=== PATIENT | male | born 1940 | race Caucasian/White ===

== ENCOUNTER 2017-03-22 09:47 | Emergency (ER) | payer MEDICARE, BC ==
[~2017-03-22] VITALS: Ht 182.9 cm; Wt 105.0 kg
[~2017-03-22 09:47] MED LIST: AMLO5TAB4 PO; ASPI-1159 PO; ATEN-42 PO; AZEL30SP2 BOTHNSTRLS; CHOL100046 PO; CO-ENZYME Q10; GLUCOSAMINE/CHON; IRBE150T51 PO; MECL-109 PO; MONT10TA21 PO; MSM; NIAC1000 PO; NITR0.4T SL; OMEP40CA34 PO; PSYLLIUM; ROSU10TA PO; SOTA80TA PO; SULI200T4 PO; TAMS0.4C31 PO; WARF7.5T22 PO; ZOLP10TA6 PO; [UNRECOGNIZED DRUG - OTHER]; [UNRECOGNIZED DRUG - OTHER]; [UNRECOGNIZED DRUG - OTHER]; [UNRECOGNIZED DRUG - OTHER]
[2017-03-22 14:03] VITALS: BP 110/62
== END 2017-03-22 14:04 | disposition home or self-care (01) ==
LOC: ER 09:47
DX: I82.532 Chronic embolism and thrombosis of left popliteal vein (principal); R60.9 Edema, unspecified; I10 Essential (primary) hypertension; E78.00 Pure hypercholesterolemia, unspecified; I48.91 Unspecified atrial fibrillation; Z95.0 Presence of cardiac pacemaker; Z79.82 Long term (current) use of aspirin; Z79.01 Long term (current) use of anticoagulants
CPT/HCPCS: 93005; 93970; 99284

== ENCOUNTER 2018-12-17 13:48 | Inpatient (IN) | payer MEDICARE, BC ==
[~2018-12-17] VITALS: Ht 182.9 cm; Wt 83.6 kg
[2018-12-17 15:15] LABS: BASOPHILS % 0.4 % (0.0-2.0); EOSINOPHILS % 0.4 % (0.0-5.0); HEMATOCRIT. 37.2 % (42.0-52.0); HEMOGLOBIN. 12.9 g/dL (14.0-18.0); LYMPHOCYTES % 8.2 % (20.0-50.0); MEAN CORPUSCULAR HEMOGLOBIN 31.3 pg (28.0-32.0); MEAN CORPUSCULAR VOLUME 89.9 fL (80.0-94.0); MEAN PLATELET VOLUME 7.2 fl (7.4-10.4); MONOCYTES % 9.7 % (2.0-8.0); NEUTROPHILS % 81.3 % (40.0-76.0); PLATELET 138 x1000/uL (130-400); RED BLOOD CELL COUNT 4.13 mill/uL (4.7-6.1); RED CELL DISTRIBUTION WIDTH 13.4 % (11.6-14.6)
[2018-12-17 15:19] LABS: CHLORIDE 111 mEq/L (98-107)
[2018-12-17] MEDS ORDERED: ASPIRIN 325MG EC TABLET PO ONE (15:30)
[2018-12-17] MEDS ORDERED: DONEPEZIL HCL 10MG TABLET PO SCH (16:15)
[2018-12-17] MEDS ORDERED: ASPIRIN 325MG EC TABLET PO SCH (16:15)
[2018-12-17] MEDS ORDERED: NON FORMULARY PATIENT HOME MED XX SCH (16:15)
[2018-12-17] MEDS ORDERED: ATENOLOL 25MG TABLET PO SCH (16:15)
[2018-12-17] MEDS ORDERED: CLONIDINE 0.1MG TABLET PO PRN (16:30)
[2018-12-17] MEDS ORDERED: MONTELUKAST SODIUM 10MG TABLET PO SCH (17:00)
[2018-12-17] MEDS ORDERED: ONDANSETRON HCL 4MG/2ML INJ IV PRN (17:45)
[2018-12-17] MEDS ORDERED: GUAIFENESIN 200MG/10ML SUGAR FREE UDC PO PRN (17:45)
[2018-12-17] MEDS ORDERED: DOCUSATE SODIUM 100MG CAPSULE PO PRN (17:45)
[2018-12-17] MEDS ORDERED: MORPHINE SULFATE 2 MG/ML CPJ (NOT FOR IM USE) IV PRN (17:59)
[2018-12-17 18:23] LABS: PROTHROMBIN TIME 43.2 sec (9.6-11.0)
[2018-12-17 18:30] LABS: INR 4.5
[2018-12-17] MEDS: ACETAMINOPHEN 325MG TABLET PO PRN (19:50)
[2018-12-17 22:00] VITALS: BP 112/52
[2018-12-17] MEDS ORDERED: IOHEXOL-350 100 ML BOTTLE ONE (22:22)
[2018-12-17] MEDS: MONTELUKAST SODIUM 10MG TABLET PO SCH (22:50)
[2018-12-17] MEDS: DONEPEZIL HCL 10MG TABLET PO SCH (22:50)
[2018-12-17] MEDS: ATENOLOL 25MG TABLET PO SCH (22:51)
[2018-12-17] MEDS: TRAZODONE HCL 50MG TABLET PO SCH (22:51)
[2018-12-17 23:00] VITALS: BP_SYST 109; BP_SYST 120; BP_DIAS 55; BP_DIAS 63
[2018-12-18] VITALS (12 sets, daily range): BP systolic 95–122; BP diastolic 56–73
[2018-12-18 06:27] LABS: CHLORIDE 111 mEq/L (98-107)
[2018-12-18 06:29] LABS: HEMOGLOBIN. 12.2 g/dL (14.0-18.0); MEAN CORPUSCULAR HEMOGLOBIN 31.1 pg (28.0-32.0); MEAN CORPUSCULAR VOLUME 89.1 fL (80.0-94.0); MEAN PLATELET VOLUME 7.9 fl (7.4-10.4); PLATELET 128 x1000/uL (130-400); RED BLOOD CELL COUNT 3.92 mill/uL (4.7-6.1); RED CELL DISTRIBUTION WIDTH 13.4 % (11.6-14.6)
[2018-12-18 06:30] LABS: D-DIMER < 0.19 mg/L FEU (<0.50); PROTHROMBIN TIME 45.9 sec (9.6-11.0)
[2018-12-18 06:38] LABS: CREATINE KINASE 89 IU/L (39-308)
[2018-12-18 06:43] LABS: CREATINE KINASE MB FRACTION 1.4 ng/mL (0.5-3.6)
[2018-12-18 07:43] LABS: INR 4.8
[2018-12-18] MEDS: ASPIRIN 81MG EC TABLET PO SCH (08:17)
[2018-12-18] MEDS: DONEPEZIL HCL 10MG TABLET PO SCH (08:24)
[2018-12-18] MEDS: ATENOLOL 25MG TABLET PO SCH (08:25)
[2018-12-18] MEDS ORDERED: POTASSIUM CHLORIDE 20MEQ TABLET SR PO NR (10:00)
[2018-12-18] MEDS ORDERED: MAGNESIUM 2 G PREMIX 50 ML IV NR (10:30)
[2018-12-18] MEDS: ACETAMINOPHEN 325MG TABLET PO PRN (10:53)
[2018-12-18] MEDS: POLYETHYLENE GLYCOL 3350 (17GM) 1 DOSE PACK PO SCH (12:35)
[2018-12-18] MEDS ORDERED: PROMETHAZINE/DEXTROMETHORPHAN 6.25-15MG/5ML BOTTLE 120ML PO PRN (15:15)
[2018-12-18] MEDS ORDERED: IPRATROPIUM/ALBUTEROL 0.5-3(2.5)MG/3ML NEB HHN PRN (15:15)
[2018-12-18] MEDS: LORATADINE 10MG TABLET PO SCH (15:22)
[2018-12-18] MEDS ORDERED: REGADENOSON 0.4 MG/5 ML IV NR (15:45)
[2018-12-18 17:40] LABS: PLATELET ESTIMATE NORMAL
[2018-12-18] MEDS: MONTELUKAST SODIUM 10MG TABLET PO SCH (18:00)
[2018-12-18] MEDS: FLUTICASONE PROPIONATE 50MCG/SPRAY BOTTLE BOTHNSTRLS SCH (21:07)
[2018-12-18] MEDS: TRAZODONE HCL 50MG TABLET PO SCH (21:07)
[2018-12-19] VITALS (9 sets, daily range): BP systolic 97–124; BP diastolic 53–75
[2018-12-19 07:00] LABS: INR 2.6; PROTHROMBIN TIME 25.5 sec (9.6-11.0)
[2018-12-19 07:01] LABS: BASOPHILS % 0.7 % (0.0-2.0); EOSINOPHILS % 2.7 % (0.0-5.0); HEMATOCRIT. 37.9 % (42.0-52.0); HEMOGLOBIN. 12.8 g/dL (14.0-18.0); LYMPHOCYTES % 17.9 % (20.0-50.0); MEAN CORPUSCULAR HEMOGLOBIN 30.7 pg (28.0-32.0); MEAN CORPUSCULAR VOLUME 90.7 fL (80.0-94.0); MEAN PLATELET VOLUME 7.7 fl (7.4-10.4); NEUTROPHILS % 66.7 % (40.0-76.0); PLATELET 129 x1000/uL (130-400); RED BLOOD CELL COUNT 4.17 mill/uL (4.7-6.1); RED CELL DISTRIBUTION WIDTH 13.5 % (11.6-14.6)
[2018-12-19 07:31] LABS: CREATINE KINASE 62 IU/L (39-308)
[2018-12-19 07:32] LABS: CREATINE KINASE MB FRACTION < 1.0 ng/mL (0.5-3.6)
[2018-12-19] MEDS: FLUTICASONE PROPIONATE 50MCG/SPRAY BOTTLE BOTHNSTRLS SCH (08:05)
[2018-12-19] MEDS: DONEPEZIL HCL 10MG TABLET PO SCH (08:05)
[2018-12-19] MEDS: ATENOLOL 25MG TABLET PO SCH (08:06)
[2018-12-19] MEDS: LORATADINE 10MG TABLET PO SCH (08:06)
[2018-12-19] MEDS: POLYETHYLENE GLYCOL 3350 (17GM) 1 DOSE PACK PO SCH (08:07)
[2018-12-19] MEDS: ASPIRIN 81MG EC TABLET PO SCH (08:07)
[2018-12-19] MEDS ORDERED: REGADENOSON 0.4 MG/5 ML IV ONE (10:09)
[2018-12-19 10:54] LABS: CHLORIDE 115 mEq/L (98-107)
[2018-12-19] MEDS ORDERED: MAGNESIUM 1 G PREMIX 100 ML IV SCH (11:00)
[2018-12-19 14:29] LABS: BG CARBOXYHEMOGLOBIN 0.4 % (0.5-1.5); BG DEOXYHEMOGLOBIN 5.7 % (0.0-5.0); BG FRACTION INSPIRED OXYGEN 21; BG HCO3 ACT 23.3 mmol/L (22.0-26.0); BG METHEMOGLOBIN 0.2 % (0.0-1.5); BG OXYGEN SATURATION 94.3 % (92.0-98.5); BG OXYHEMOGLOBIN 93.7 % (94.0-97.0); BG PCO2 37.3 mmHg (35.0-45.0); BG PH 7.413 (7.350-7.450); BG PO2 71.8 mmHg (75.0-100.0); BG SAMPLE SITE RIGHT BRACHIAL; BG TOTAL HEMOGLOBIN 13.4 g/dL (12.0-18.0); BG VENT MODE ROOM AIR
== END 2018-12-19 16:50 | disposition home or self-care (01) | DRG 199 ==
LOC: ER 13:48 → 5EST 17:34 → ENRESERV 19:51 → CANRESERV 19:51 → EDBEDREQSVC 20:06 → EDBEDREQTM 20:06 → ENRESERV 20:31
PROVIDERS: ADMIT Hospitalist; ATTEND Hospitalist
DX: J93.83 Other pneumothorax (principal); J96.00 Acute respiratory failure, unspecified whether with hypoxia or hypercapnia; D68.59 Other primary thrombophilia; I25.119 Atherosclerotic heart disease of native coronary artery with unspecified angina pectoris; I48.0 Paroxysmal atrial fibrillation; E78.00 Pure hypercholesterolemia, unspecified; I45.10 Unspecified right bundle-branch block; E78.5 Hyperlipidemia, unspecified; E87.6 Hypokalemia; F03.90 Unspecified dementia, unspecified severity, without behavioral disturbance, psychotic disturbance, mood disturbance, and anxiety; G47.00 Insomnia, unspecified; G47.33 Obstructive sleep apnea (adult) (pediatric); I49.5 Sick sinus syndrome; I50.9 Heart failure, unspecified; I11.0 Hypertensive heart disease with heart failure; K21.9 Gastro-esophageal reflux disease without esophagitis; N40.0 Benign prostatic hyperplasia without lower urinary tract symptoms; K59.00 Constipation, unspecified; T45.515A Adverse effect of anticoagulants, initial encounter; J31.0 Chronic rhinitis; I71.4 Abdominal aortic aneurysm, without rupture; Z79.01 Long term (current) use of anticoagulants; Z82.49 Family history of ischemic heart disease and other diseases of the circulatory system; Z86.711 Personal history of pulmonary embolism; Z86.718 Personal history of other venous thrombosis and embolism; Z95.0 Presence of cardiac pacemaker; Z95.5 Presence of coronary angioplasty implant and graft; Y92.89 Other specified places as the place of occurrence of the external cause; Z95.828 Presence of other vascular implants and grafts
CPT/HCPCS: 36415; 36600; 71045; 71046; 71275; 78452; 80048; 82375; 82550; 82553; 82805; 83735; 83880; 84443; 84484; 85379; 93005; 93017; 93306; 96374; 99285; A9500; J2785; J3475; Q9967

== ENCOUNTER 2019-02-19 17:10 | Inpatient (IN) | payer MEDICARE, BC ==
[~2019-02-19] VITALS: Ht 182.9 cm; Wt 79.8 kg
[2019-02-19 17:58] LABS: EOSINOPHILS % 1.6 % (0.0-5.0); HEMATOCRIT. 38.2 % (42.0-52.0); LYMPHOCYTES % 19.7 % (20.0-50.0); MEAN CORPUSCULAR HEMOGLOBIN 31.2 pg (28.0-32.0); MEAN CORPUSCULAR VOLUME 91.5 fL (80.0-94.0); MEAN PLATELET VOLUME 7.6 fl (7.4-10.4); MONOCYTES % 8.7 % (2.0-8.0); PLATELET 137 x1000/uL (130-400); RED BLOOD CELL COUNT 4.17 mill/uL (4.7-6.1); RED CELL DISTRIBUTION WIDTH 13.1 % (11.6-14.6)
[2019-02-19 17:59] LABS: CHLORIDE 112 mEq/L (98-107)
[2019-02-19 18:01] LABS: INR 1.2; PARTIAL THROMBOPLASTIN TIME 26.5 sec (23.4-31.0)
[2019-02-19 18:04] LABS: ETHANOL BLOOD < 10 mg/dL
[2019-02-19 18:08] LABS: LDL CHOLESTEROL 95 mg/dL (5-100)
[2019-02-19 18:09] LABS: CREATINE KINASE 39 IU/L (39-308)
[2019-02-19] MEDS ORDERED: ACETAMINOPHEN 325MG TABLET PO PRN (19:45)
[2019-02-19] MEDS ORDERED: TRAMADOL 50MG TABLET PO PRN (19:45)
[2019-02-19] MEDS ORDERED: ONDANSETRON HCL 4MG/2ML INJ IV PRN (19:45)
[2019-02-19] MEDS ORDERED: MAGNESIUM/ALUMINUM HYDROXIDE/SIMETHICONE 30ML UDC PO PRN (19:45)
[2019-02-19] MEDS ORDERED: ZOLPIDEM TARTRATE 5MG TABLET PO PRN (19:45)
[2019-02-19] MEDS ORDERED: GUAIFENESIN 200MG/10ML SUGAR FREE UDC PO PRN (19:45)
[2019-02-19] MEDS ORDERED: DOCUSATE SODIUM 100MG CAPSULE PO PRN (19:45)
[2019-02-19] MEDS ORDERED: NITROGLYCERIN 0.4MG TABLET SL SL PRN (19:45)
[2019-02-19] MEDS ORDERED: IPRATROPIUM/ALBUTEROL 0.5-3(2.5)MG/3ML NEB NEB PRN (19:45)
[2019-02-19] MEDS ORDERED: CLONIDINE 0.1MG TABLET PO PRN (19:45)
[2019-02-19 20:13] LABS: T4 FREE 1.02 ng/dL (0.76-1.46)
[2019-02-19] MEDS ORDERED: IOHEXOL-350 100 ML BOTTLE ONE (20:24)
[2019-02-19 20:31] LABS: FOLIC ACID (FOLATE) SERUM 12.4 ng/mL (>5.38)
[2019-02-19 23:29] VITALS: BP 159/59
[2019-02-20] VITALS (10 sets, daily range): BP systolic 122–167; BP diastolic 59–83
[2019-02-20] MEDS: FAMOTIDINE 20MG TABLET PO SCH ×3 (00:44→20:51)
[2019-02-20] MEDS: ATORVASTATIN CALCIUM 10MG TABLET PO SCH ×2 (00:44→20:51)
[2019-02-20] MEDS: METOPROLOL TARTRATE 25MG TABLET PO SCH ×3 (00:45→20:51)
[2019-02-20] MEDS ORDERED: APIX2.5T PO (01:01)
[2019-02-20] MEDS ORDERED: TRAZ-251 PO (01:01)
[2019-02-20] MEDS ORDERED: SOTA80TA PO (01:01)
[2019-02-20] MEDS ORDERED: IRBE75TA31 PO (01:01)
[2019-02-20] MEDS ORDERED: ATEN-42 PO (01:01)
[2019-02-20] MEDS ORDERED: PRAV10TA35 PO (01:01)
[2019-02-20 01:18] LABS: CREATINE KINASE 38 IU/L (39-308)
[2019-02-20 01:19] LABS: CREATINE KINASE MB FRACTION < 1.0 ng/mL (0.5-3.6)
[2019-02-20] MEDS: APIXABAN 5 MG TABLET PO SCH ×2 (05:57→18:00)
[2019-02-20 07:22] LABS: BASOPHILS % 0.7 % (0.0-2.0); EOSINOPHILS % 2.1 % (0.0-5.0); HEMOGLOBIN. 12.5 g/dL (14.0-18.0); LYMPHOCYTES % 26.9 % (20.0-50.0); MEAN CORPUSCULAR HEMOGLOBIN 31.4 pg (28.0-32.0); MEAN CORPUSCULAR VOLUME 90.2 fL (80.0-94.0); MEAN PLATELET VOLUME 7.7 fl (7.4-10.4); MONOCYTES % 8.8 % (2.0-8.0); NEUTROPHILS % 61.5 % (40.0-76.0); PLATELET 130 x1000/uL (130-400); RED BLOOD CELL COUNT 3.99 mill/uL (4.7-6.1)
[2019-02-20 09:13] LABS: CHLORIDE 112 mEq/L (98-107)
[2019-02-20 10:01] LABS: CREATINE KINASE 36 IU/L (39-308)
[2019-02-20 10:02] LABS: CREATINE KINASE MB FRACTION 1.1 ng/mL (0.5-3.6)
[2019-02-20] MEDS: DONEPEZIL HCL 10MG TABLET PO SCH (10:41)
[2019-02-20] MEDS: ASPIRIN 81MG EC TABLET PO SCH (10:43)
[2019-02-21] VITALS: BP 173/77
[2019-02-21 04:00] VITALS: BP 158/67
[2019-02-21] MEDS: APIXABAN 5 MG TABLET PO SCH ×3 (05:24→18:49)
[2019-02-21 07:39] LABS: CREATINE KINASE 36 IU/L (39-308)
[2019-02-21 07:40] LABS: HDL CHOLESTEROL 48 mg/dL (40-59)
[2019-02-21 07:41] LABS: CREATINE KINASE MB FRACTION < 1.0 ng/mL (0.5-3.6)
[2019-02-21 07:47] LABS: LDL CHOLESTEROL 90 mg/dL (5-100)
[2019-02-21 08:00] VITALS: BP 129/75
[2019-02-21] MEDS: DONEPEZIL HCL 10MG TABLET PO SCH (08:57)
[2019-02-21] MEDS: METOPROLOL TARTRATE 25MG TABLET PO SCH ×2 (08:57→20:49)
[2019-02-21] MEDS: FAMOTIDINE 20MG TABLET PO SCH ×2 (08:57→20:49)
[2019-02-21] MEDS: ASPIRIN 81MG EC TABLET PO SCH (08:57)
[2019-02-21 12:00] VITALS: BP 151/79
[2019-02-21 16:00] VITALS: BP 149/80
[2019-02-21] MEDS: SOTALOL HCL 80MG TABLET PO SCH (18:49)
[2019-02-21 20:00] VITALS: BP_SYST 134; BP_SYST 139; BP_DIAS 63; BP_DIAS 71
[2019-02-21] MEDS: ATORVASTATIN CALCIUM 10MG TABLET PO SCH (20:49)
[2019-02-22] VITALS: BP 146/68
[2019-02-22 04:00] VITALS: BP 169/71
[2019-02-22] MEDS: APIXABAN 5 MG TABLET PO SCH (06:07)
[2019-02-22 08:00] VITALS: BP 154/56
[2019-02-22] MEDS: FAMOTIDINE 20MG TABLET PO SCH (08:47)
[2019-02-22] MEDS: ASPIRIN 81MG EC TABLET PO SCH (08:47)
[2019-02-22] MEDS: DONEPEZIL HCL 10MG TABLET PO SCH (08:48)
[2019-02-22] MEDS: SOTALOL HCL 80MG TABLET PO SCH (08:48)
[2019-02-22] MEDS: METOPROLOL TARTRATE 25MG TABLET PO SCH (08:48)
[2019-02-22] MEDS ORDERED: LOSARTAN POTASSIUM 50 MG TABLET PO SCH (09:00)
[2019-02-22 12:00] VITALS: BP 139/52
== END 2019-02-22 14:21 | disposition home or self-care (01) | DRG 300 ==
LOC: ER 17:10 → 7WST 19:38 → EDBEDREQTM 19:40 → EDBEDREQSVC 19:40 → EDBEDREQ 19:40 → ENRESERV 21:00
PROVIDERS: ADMIT Internal Medicine; ATTEND Internal Medicine
DX: I82.432 Acute embolism and thrombosis of left popliteal vein (principal); G45.9 Transient cerebral ischemic attack, unspecified; D63.8 Anemia in other chronic diseases classified elsewhere; E78.00 Pure hypercholesterolemia, unspecified; I10 Essential (primary) hypertension; I25.10 Atherosclerotic heart disease of native coronary artery without angina pectoris; I48.0 Paroxysmal atrial fibrillation; Z79.01 Long term (current) use of anticoagulants; Z79.899 Other long term (current) drug therapy; Z82.49 Family history of ischemic heart disease and other diseases of the circulatory system; Z86.711 Personal history of pulmonary embolism; Z86.718 Personal history of other venous thrombosis and embolism; Z95.0 Presence of cardiac pacemaker; Z95.5 Presence of coronary angioplasty implant and graft; Z95.828 Presence of other vascular implants and grafts
CPT/HCPCS: 36415; 70496; 71045; 80061; 80320; 82550; 82553; 82607; 82746; 82962; 83036; 83540; 83550; 83721; 83735; 83880; 84439; 84443; 84484; 93005; 93306; 93880; 93970; 97161; 99285; Q9967; G0480